=== PATIENT | male | born 1945 | race Caucasian/White ===

== ENCOUNTER 2022-02-14 11:16 | Inpatient (IN) | payer MEDICARE ==
[~2022-02-14] VITALS: Ht 175.3 cm; Wt 68.0 kg
--- NOTE | 2022-02-14 11:30 | NUR ---
C/O MID STERNAL CHEST "TIGHTNESS" NON RADIATING X 1 HR AGO. DENIES SOB, DIZZINESS, N/V, BURR, ARM/JAW PAIN AT THIS TIME. PLACED ON BED, AAOX4, BREATHING EVEN AND UNLABORED SATURATING AT 97%, IN PAIN 5/10 PS.
--- NOTE | 2022-02-14 11:36 | NUR ---
X-RAY TECH AT BEDSIDE
--- NOTE | 2022-02-14 11:50 | NUR ---
blood drawn and sent to lab
[2022-02-14 11:54] LABS: BASOPHILS % (AUTO) 0.4 % (0.0-2.0); EOSINOPHILS % (AUTO) 1.3 % (0.0-6.0); HEMATOCRIT 38 % (39-51); HEMOGLOBIN 12.7 g/dL (13.5-17.5); LYMPHOCYTES # (AUTO) 0.5 K/uL (0.8-4.8); LYMPHOCYTES % (AUTO) 7.3 % (20.0-44.0); MEAN CORPUSCULAR HGB CONC 33 g/dl (31.0-36.0); MEAN CORPUSCULAR VOLUME 89 fL (80-96); MONOCYTES # (AUTO) 0.5 K/uL (0.1-1.30); MONOCYTES % (AUTO) 7.4 % (2.0-12.0); NEUTROPHILS # (AUTO) 5.9 K/uL (1.8-8.9); NEUTROPHILS % (AUTO) 83.6 % (43.0-81.0); PLATELET COUNT (AUTO) 162 K/uL (150-450); RED BLOOD CELL COUNT(AUTO) 4.28 MIL/uL (4.5-6.0)
--- NOTE | 2022-02-14 11:55 | NUR ---
move sheet submitted.
--- NOTE | 2022-02-14 11:57 | NUR ---
SWAB FOR COVID19 SENT TO LAB
[2022-02-14 12:02] LABS: CALCIUM, SERUM 9.1 mg/dL (8.5-10.1); CARBON DIOXIDE 28 mmol/L (21-32); CHLORIDE 104 mmol/L (98-107); CREATININE 1.4 mg/dL (0.6-1.3); GLUCOSE 106 mg/dL (74-106); SODIUM SERUM 138 mmol/L (136-145); UREA NITROGEN, BLOOD 23 mg/dL (7-18)
[2022-02-14] MEDS ORDERED: CHOL500011 PO (12:33)
[2022-02-14] MEDS ORDERED: OLME40TA18 PO (12:33)
[2022-02-14] MEDS ORDERED: ROSU5TAB13 PO (12:33)
[2022-02-14] MEDS ORDERED: ASPI-1420 PO (12:33)
[2022-02-14] MEDS ORDERED: NEBI20TA2 PO (12:33)
[2022-02-14] MEDS ORDERED: HYDROCODONE/APAP 5/325MG TABLET PO PRN (13:00)
[2022-02-14] MEDS ORDERED: Z GUARD REMEDY 4 OZ OINT TP PRN (13:00)
[2022-02-14] MEDS ORDERED: NITROGLYCERIN 0.4 MG/TAB BOTTLE SL PRN (13:00)
[2022-02-14] MEDS ORDERED: ACETAMINOPHEN 325 MG TABLET PO PRN (13:00)
[2022-02-14] MEDS ORDERED: IV NS 0.9% 1,000 ML IV PRN (13:00)
[2022-02-14] MEDS ORDERED: MAGNESIUM HYDROXIDE 30 ML UDC PO PRN (13:00)
[2022-02-14] MEDS ORDERED: MAG HYDROX/AL HYDROX/SIMETH 30 ML UDC PO PRN (13:00)
[2022-02-14] MEDS ORDERED: ONDANSETRON HCL/PF 4 MG/2 ML VIAL IVP PRN (13:00)
[2022-02-14] MEDS ORDERED: MORPHINE SULFATE INJ 2 MG/ML DISP.SYRIN IV PRN (13:00)
--- NOTE | 2022-02-14 14:17 | NUR ---
REPORT GIVEN TO AMANDA RN ROOM 309-1 FOR KATERNIE
--- NOTE | 2022-02-14 15:00 | NUR ---
ADMISSION NOTE Received patient from ER via gurney. Patient is A/o x 4, able to make needs known. On room air, breathing evenly and unlabored. No SOB or s/s of distress noted. IV access on RAC #20, intact and patent. Patient oriented to room and how to use the call light. Skin assessment done, redness on sacrum and inner buttock noted. Patient states that he has history of skin cancer on that area. Photos taken and placed in chart, wound care consult requested. Lungs clear on auscultation. Bowel sounds present x 4. Safety precautions in place: bed in low, locked position; siderails up x 2; call light within reach. Will continue to monitor. Addendum: 02/14/22 at 1930 by AGLI DAWN RN ADD: VS as follows: BP 133/70, HR 54, RR 20, Temp 97.3, SPO2 98%
[2022-02-14 16:00] VITALS: BP 133/70
--- NOTE | 2022-02-14 19:41 | NUR ---
TOBACCO DRUMMER CLOSING NOTE Patient in bed, resting. A/O x 4, able to make needs known. Stable on room air. IV access on RAC #20 infusing Ns at 75 ml/hr. All needs attended to. Safety precautions maintained. Will endorse to shift leader nurse for KATERINE. Addendum: 02/14/22 at 1943 by GALI DAWN RN ADD: On tele monitoring showing SB with BBB, HR 49
--- NOTE | 2022-02-14 20:16 | NUR ---
AQUATICS DIRECTOR OPENING NOTE PATIENT AWAKE IN BED, ALERT/ORIENTED X 4, PT ABLE TO MAKE NEEDS KNOWN. PT STABLE ON RA, NO S/S OF DISTRESS OR SOB NOTED, BREATHING EVEN AND UNLABORED. PATIENT ON EXTERNAL PROFILE SAW OPERATOR READING SINUS JACKELIN, HR: 47. IV ACCESS ON RIGHT AC #20G INTACT AND INFUSING NS @ 75 ML/HR. SAFETY MEASURES IN PLACE: CALL LIGHT WITHIN REACH, SIDE RAILS UP X 2, BED LOCKED IN LOWEST POSITION, BED ALARM ON. WILL CONTINUE TO MONITOR PATIENT
[2022-02-14 20:30] VITALS: BP 151/77
[2022-02-14] MEDS ORDERED: TEMAZEPAM 15 MG CAPSULE PO PRN (22:00)
[2022-02-15 05:58] LABS: BASOPHILS % (AUTO) 0.3 % (0.0-2.0); EOSINOPHILS % (AUTO) 3.3 % (0.0-6.0); HEMATOCRIT 37 % (39-51); HEMOGLOBIN 12.2 g/dL (13.5-17.5); LYMPHOCYTES # (AUTO) 0.4 K/uL (0.8-4.8); MEAN CORPUSCULAR HGB CONC 33 g/dl (31.0-36.0); MEAN CORPUSCULAR VOLUME 89 fL (80-96); MONOCYTES # (AUTO) 0.5 K/uL (0.1-1.30); MONOCYTES % (AUTO) 8.6 % (2.0-12.0); NEUTROPHILS # (AUTO) 4.5 K/uL (1.8-8.9); NEUTROPHILS % (AUTO) 79.8 % (43.0-81.0); PLATELET COUNT (AUTO) 157 K/uL (150-450); RED BLOOD CELL COUNT(AUTO) 4.09 MIL/uL (4.5-6.0); WHITE BLOOD COUNT (AUTO) 5.6 K/uL (4.3-11.0)
[2022-02-15 06:48] LABS: CARBON DIOXIDE 30 mmol/L (21-32); CHLORIDE 108 mmol/L (98-107); CREATININE 1.4 mg/dL (0.6-1.3); GLUCOSE 93 mg/dL (74-106); PHOSPHORUS 2.8 mg/dL (2.5-4.9); POTASSIUM 4.4 mmol/L (3.5-5.1); SODIUM SERUM 143 mmol/L (136-145); UREA NITROGEN, BLOOD 19 mg/dL (7-18)
[2022-02-15 06:57] LABS: CHOLESTEROL 144 mg/dL (<200); HDL CHOLESTEROL 53 mg/dL (40-60); LDL 79 mg/dL (0-99); THYROID STIMULATING HORMONE 2.683 uIU/mL (0.358-3.74); TRIGLYCERIDES 49 mg/dL (30-150)
--- NOTE | 2022-02-15 07:03 | NUR ---
CLAIM ATTORNEY CLOSING NOTE PATIENT AWAKE IN BED, ALERT/ORIENTED X 4, PT ABLE TO MAKE NEEDS KNOWN. PT STABLE ON RA, NO S/S OF DISTRESS OR SOB NOTED, BREATHING EVEN AND UNLABORED. PATIENT ON EXTERNAL PRECISION DYER READING SINUS RHYTHM WITH BBB, HR: 73. IV ACCESS ON RIGHT AC #20G INTACT AND INFUSING NS @ 75 ML/HR. PATIENT NEEDS MET THROUGHOUT SHIFT. SAFETY MEASURES IN PLACE: CALL LIGHT WITHIN REACH, SIDE RAILS UP X 2, BED LOCKED IN LOWEST POSITION, BED ALARM ON. WILL ENDORSE TO DAYSHIFT NURSE FOR CONTINUITY OF CARE
[2022-02-15 08:00] VITALS: BP 151/64
--- NOTE | 2022-02-15 08:00 | NUR ---
WOOD FINISHER OPENING NOTE PATIENT AWAKE IN BED, ALERT/ORIENTED X 4, PT ABLE TO MAKE NEEDS KNOWN. PT STABLE ON RA, NO S/S OF DISTRESS OR SOB NOTED, BREATHING EVEN AND UNLABORED. NO CHEST PAIN.PATIENT ON EXTERNAL FORESTRY TECHNICIAN. IV ACCESS ON RIGHT AC #20G INTACT . SAFETY MEASURES IN PLACE: CALL LIGHT WITHIN REACH, SIDE RAILS UP X 2, BED LOCKED IN LOWEST POSITION, BED ALARM ON. WILL CONTINUE TO MONITOR PATIENT.
[2022-02-15] MEDS ORDERED: IV NS 0.9% 1,000 ML IV PRN (08:04)
[2022-02-15] MEDS: PANTOPRAZOLE 40 MG TABLET.DR PO SCH (08:30)
[2022-02-15] MEDS ORDERED: ASPIRIN EC 81 MG TABLET.DR PO SCH (09:00)
[2022-02-15] MEDS: METOPROLOL TARTRATE 50 MG TABLET PO SCH ×2 (09:22→20:23)
[2022-02-15] MEDS: ASPIRIN 81 MG TAB.CHEW PO SCH (09:23)
[2022-02-15] MEDS: LOSARTAN POTASSIUM 50 MG TABLET PO SCH (09:23)
--- NOTE | 2022-02-15 10:30 | NUR ---
BEEHIVE KILN SUPERVISOR NOTES PATIENT IS CALM AND AWAKE IN BED. NO COMPLAINS OF CHEST PAIN. UA SAMPLE HAS BEEN COLLECTED AND NOTIFIED THE LAB. CONSENT FOR THE 3D ANGIOGRAM SIGNED AND BEING PUT IN THE PATIENT'S CHART.
--- NOTE | 2022-02-15 10:32 | NUR ---
WOUND CARE CONSULT: PT PRESENTS WITH CHRONIC REDNESS/DRY, SCALY SKIN TO SACRUM, S/P SKIN CANCER AND RADIATION THERAPY. PT REQUESTS A MOISTURIZER FOR SACRAL DRY SKIN AREA. RECOMMENDATIONS MADE FOR SKIN PROTECTION. DISCUSSED WITH NURSING STAFF. PT IS INDEPENDENT WITH BED MOBILITY AND IS CONTINENT AT THIS TIME. MD IN AGREEMENT WITH PLAN OF CARE.
--- NOTE | 2022-02-15 11:22 | NUR ---
DIE FORGER NOTES CHECKED PATIENTS EKG ON THE MONITOR. HE IS IN SINUS BRADYCARDIA WITH BBB AT 40S. PATIENT IS ASYMPTOMATIC. CHECKED WITH PATIENT, PATIENT STATED HE FELT FINE. PATIENT IS READY FOR ANGIOGRAM.
[2022-02-15] MEDS ORDERED: IOHEXOL-350 100 ML VIAL IV ONE (11:46)
[2022-02-15] MEDS ORDERED: IV NS 0.9% 250 ML IV ONE (11:46)
[2022-02-15] MEDS ORDERED: METOPROLOL TARTRATE INJ 5 MG/5 ML AMPUL ONE (11:51)
[2022-02-15] MEDS ORDERED: NITROGLYCERIN 0.4 MG/TAB BOTTLE ONE (11:51)
[2022-02-15 12:00] VITALS: BP 124/68
[2022-02-15] MEDS ORDERED: METOPROLOL TARTRATE INJ 5 MG/5 ML AMPUL IVP PRN (12:00)
[2022-02-15] MEDS ORDERED: NITROGLYCERIN 0.4 MG/TAB BOTTLE SL ONE (12:00)
[2022-02-15 12:07] LABS: BILIRUBIN,URINE NEGATIVE (NEGATIVE); COLOR,URINE YELLOW (YELLOW); LEUKOCYTE ESTERASE ,URINE LARGE (NEGATIVE); NITRITE, URINE POSITIVE (NEGATIVE); PH,URINE 5.5 (5.0-8.0); PROTEIN,URINE NEGATIVE (NEGATIVE); UGLUCOSE NEGATIVE (NEGATIVE); UROBILINOGEN,URINE 0.2 EU/dL (0.2)
[2022-02-15 12:25] LABS: BACTERIA,URINE Few /HPF (None Seen); SQUAMOUS EPITHELIAL CELL,UR Few /HPF (None Seen); WBC,URINE 21-50 /HPF (0-3)
[2022-02-15] MEDS: MINERAL OIL/PETROL OINT 396 GM JAR TP SCH (13:34)
--- NOTE | 2022-02-15 14:00 | NUR ---
SPEECH CORRECTION CONSULTANT NOTE PATIENT TOLERATED CTA AND PATIENT WAS SEEN BY DR. MENDOZA WITH ORDER FOR LEFT HEART CATH FOR TOMORROW. SECURED CONSENT FROM MD AND ATTACHED TO CHART.
[2022-02-15] MEDS: CEFTRIAXONE 1 G in IV D5W 50 ML IV SCH (14:45)
[2022-02-15 16:00] VITALS: BP 153/64
[2022-02-15] MEDS: ATORVASTATIN 10 MG TABLET PO SCH (17:51)
--- NOTE | 2022-02-15 19:05 | NUR ---
MS RN CLOSING NOTES: PT IS IN BED sleeping. A/O X 4. NO SOB OR DISTRESS. DENIES OF HAVING CHEST DISCOMFORT OR PAIN. SAFETY PRECAUTION MAINTAINED: BED LOCKED AND IN LOWEST POSITION, SIDE RAILS UP X 2, BED ALARM ON. CALL LIGHT IN EASY REACH FOR HELP. PATIENT STARTED NPO EXCEPT FOR MEDICATIONS AFTER MIDNIGHT FOR TOMORROW'S PROCEDURE (SEE PROCEDURE NOTES). ENDORSE TO RN OF NEXT SHIFT FOR CONTINUING CARE.
--- NOTE | 2022-02-15 19:27 | NUR ---
INSURANCE INSPECTOR OPENING NOTES RECEIVED PATIENT RESTING IN BED COMFORTABLY; A/O4, BREATHING EVEN AND UNLABORED; NO SOB NOTED; TOLERATING ROOM AIR WELL; NO DISTRESS NOTED; PATIENT DENIES PAIN AT THIS TIME; PATIENT ABLE TO MAKE NEEDS KNOWN; PATIENT AMBULATORY WITH STEADY GAIT AND HAS BRP; TELE MONITOR READS SINUS JACKELIN WITH BBB; R AC #20 S/L NOTED; INTACT AND PATENT, FLUSHING WELL; NO S/S OF REDNESS OR INFILTRATION NOTED; PATIENT IS NPO EXCEPT MEDS D/T POSSIBLE LEFT HEART CATH INSERTION IN AM; CONSENTS SIGNED AND FILED IN CHART; SAFETY PRECAUTIONS IMPLEMENTED; BED LOCKED IN LOW POSITION; SIDE RAILSX2, CALL LIGHT WITHIN EASY REACH; WILL CONT PLAN OF CARE
[2022-02-15 20:00] VITALS: BP 142/56
[2022-02-15 21:19] VITALS: BP 142/56
[2022-02-16] VITALS (7 sets, daily range): BP systolic 98–122; BP diastolic 60–77
--- NOTE | 2022-02-16 06:33 | NUR ---
STUMMEL SELECTOR NOTES R AC #20G S/L IV SITE DISLODGED, IV REMOVED; IV TIP INTACT; NO S/S OF REDNESS OR INFILTRATION NOTED; PATIENT DENIES PAIN; NEW IV ACCESS SITE ESTABLISHED, L AC #20G S/L, INTACT AND PATENT, FLUSHING WELL;
--- NOTE | 2022-02-16 06:47 | NUR ---
COCONUT CANDY MAKER CLOSING NOTES RECEIVED PATIENT RESTING IN BED COMFORTABLY; A/O4, BREATHING EVEN AND UNLABORED; NO SOB NOTED; TOLERATING ROOM AIR WELL; NO DISTRESS NOTED; PATIENT DENIES PAIN AT THIS TIME; PATIENT ABLE TO MAKE NEEDS KNOWN; PATIENT AMBULATORY WITH STEADY GAIT AND HAS BRP; TELE MONITOR READS SINUS JACKELIN WITH BBB; L AC #20 S/L NOTED; INTACT AND PATENT, FLUSHING WELL; NO S/S OF REDNESS OR INFILTRATION NOTED; PATIENT IS NPO EXCEPT MEDS D/T POSSIBLE LEFT HEART CATH INSERTION 1100; CONSENTS AND CHECKLIST COMPLETED, SIGNED AND FILED IN CHART; ALL NEEDS RENDERED; SAFETY PRECAUTIONS IMPLEMENTED; BED LOCKED IN LOW POSITION; SIDE RAILSX2, CALL LIGHT WITHIN EASY REACH; WILL ENDORSE KATERINE TO ONCOMING SHIFT
[2022-02-16] MEDS: PANTOPRAZOLE 40 MG TABLET.DR PO SCH ×2 (07:30→08:39)
--- NOTE | 2022-02-16 07:35 | NUR ---
NET MVC DEVELOPER OPENING NOTES RECEIVED PATIENT LYING IN BED COMFORTABLY; A/OX4, ABLE TO MAKE NEEDS MET, ABLE TO TOLERATE ROOM AIR AT 96% WITH NO APPARENT DISTRESS NOTED, BREATHING EVEN AND UNLABORED. PATIENT DENIES PAIN AT THIS TIME, PATIENT AMBULATORY WITH STEADY GAIT AND HAS BRP; TELE MONITOR SHOWS SINUS JACKELIN WITH BBB AT 40S BPM. IV ACCESS ON LAC #20 SALINE LOCKED; INTACT AND PATENT, FLUSHING WELL. PATIENT HAS BEEN FOLLOWING NPO EXCEPT MEDS D/T POSSIBLE LEFT HEART CATH INSERTION AT 110. SAFETY PRECAUTIONS IN PLACE: BED LOCKED IN LOW POSITION; SIDE RAILSX2, CALL LIGHT AND TRAY TABLE WITHIN EASY REACH, WILL CONTINUE TO MONITOR DURING MY SHIFT.
[2022-02-16 08:12] LABS: BASOPHILS % (AUTO) 0.4 % (0.0-2.0); EOSINOPHILS % (AUTO) 3.3 % (0.0-6.0); HEMATOCRIT 37 % (39-51); HEMOGLOBIN 12.2 g/dL (13.5-17.5); LYMPHOCYTES # (AUTO) 0.4 K/uL (0.8-4.8); LYMPHOCYTES % (AUTO) 7.3 % (20.0-44.0); MEAN CORPUSCULAR HGB CONC 33 g/dl (31.0-36.0); MEAN CORPUSCULAR VOLUME 90 fL (80-96); MONOCYTES # (AUTO) 0.5 K/uL (0.1-1.30); MONOCYTES % (AUTO) 7.9 % (2.0-12.0); NEUTROPHILS % (AUTO) 81.1 % (43.0-81.0); PLATELET COUNT (AUTO) 150 K/uL (150-450); WHITE BLOOD COUNT (AUTO) 6.1 K/uL (4.3-11.0)
[2022-02-16 08:21] LABS: CALCIUM, SERUM 9.1 mg/dL (8.5-10.1); CARBON DIOXIDE 31 mmol/L (21-32); CHLORIDE 107 mmol/L (98-107); CREATININE 1.3 mg/dL (0.6-1.3); GLUCOSE 95 mg/dL (74-106); POTASSIUM 3.9 mmol/L (3.5-5.1); SODIUM SERUM 140 mmol/L (136-145); UREA NITROGEN, BLOOD 20 mg/dL (7-18)
[2022-02-16] MEDS: ASPIRIN 81 MG TAB.CHEW PO SCH (08:57)
[2022-02-16] MEDS: METOPROLOL TARTRATE 50 MG TABLET PO SCH ×2 (09:00→20:43)
[2022-02-16] MEDS: LOSARTAN POTASSIUM 50 MG TABLET PO SCH (09:01)
[2022-02-16] MEDS: MINERAL OIL/PETROL OINT 396 GM JAR TP SCH (09:04)
--- NOTE | 2022-02-16 10:45 | NUR ---
RN NOTES PATIENT WHEELED TO BRAND LEAD VIA WC.
[2022-02-16] MEDS ORDERED: LIDOCAINE HCL/MPF 1% 30 ML VIAL IJ ONE (10:52)
[2022-02-16] MEDS ORDERED: IV SET PRIMARY PUMP SET 1 EA INFUS.SET MC ONE (10:52)
[2022-02-16] MEDS ORDERED: IV NS 0.9% 1,000 ML ONE (10:52)
[2022-02-16] MEDS ORDERED: MIDAZOLAM HCL 2 MG/2ML VIAL ONE (10:53)
[2022-02-16] MEDS ORDERED: FENTANYL PF 100MCG/2ML AMPUL ONE (10:53)
[2022-02-16] MEDS ORDERED: NITROGLYCERIN IN 5 % DEXTROSE 250 ML IV ONE (10:53)
[2022-02-16] MEDS ORDERED: IODIXANOL 150 ML IV ONE (11:20)
--- NOTE | 2022-02-16 12:30 | NUR ---
RN NOTES PATIENT GOT BACK FROM [facility] AT 1225 WITH TR BAND ON RIGHT WRIST WITH 15 ML OF AIR. NO SIGNS AND SYMPTOMS OF ACTIVE BLEEDING NOTED ON SITE. WILL START TO WITHDRAW AIR AT 1409, 2 HOURS POST INSERTION OF TR BAND AT 1209.
[2022-02-16] MEDS: CEFTRIAXONE 1 G in IV D5W 50 ML IV SCH (13:45)
--- NOTE | 2022-02-16 14:15 | NUR ---
RN NOTES - TR BAND REMOVAL 1415 - 3 CC OF AIR REMOVED - OXYGEN SATURATION ON RIGHT HAND - 97% 1430 - 3 CC OF AIR REMOVED - OXYGEN SATURATION ON RIGHT HAND - 96% 1445 - 4 CC OF AIR REMOVED - OXYGEN SATURATION ON RIGHT HAND - 97% 1500 - 5 CC OF AIR REMOVED - OXYGEN SATURATION ON RIGHT HAND - 98% TOTAL OF 15 CC OR AIR REMOVED, REMOVED TR BAND WITHOUT ANY NOTED BLEEDING. APPLIED PRESSURE GAUZE AND SECURED WITH TAPE.
[2022-02-16] MEDS: ATORVASTATIN 10 MG TABLET PO SCH (17:04)
--- NOTE | 2022-02-16 19:00 | NUR ---
UTILITY DIVISION PROJECT MANAGER CLOSING NOTES RECEIVED PATIENT LYING IN BED; A/OX4, ABLE TO MAKE NEEDS MET, ABLE TO TOLERATE ROOM AIR AT 96% WITH NO APPARENT DISTRESS NOTED, BREATHING EVEN AND UNLABORED. S/P LEFT HEART CATHETERIZATION. PATIENT DENIES PAIN AT THIS TIME, PATIENT AMBULATORY WITH STEADY GAIT AND HAS BRP; TELE MONITOR SHOWS SINUS JACKELIN AT 54 BPM. IV ACCESS ON LAC #20 SALINE LOCKED; INTACT AND PATENT, FLUSHING WELL. ALL NEEDS MET, DUE MEDS GIVEN. SAFETY PRECAUTIONS IN PLACE: BED LOCKED IN LOW POSITION; SIDE RAILSX2, CALL LIGHT AND TRAY TABLE WITHIN EASY REACH, ENDORSED TO HOTEL CASINO FLOORPERSON NURSE.
--- NOTE | 2022-02-16 19:13 | NUR ---
WOOD LATHE OPERATOR OPENING NOTE RECEIVED PT IN AAOX 4, PT ABLE TO MAKE NEEDS KNOWN.ALESHA WELL ON RM AIR NO SIGN SOB/DISTRESS NOTED, BREATHING EVEN AND UNLABORED.NO COMPLAINED OF PAIN/DISCOMFORT AT THIS TIME, IV ACCESS ON LAC #20G INTACT AND PATENT,SAFETY MEASURES IN PLACE: CALL LIGHT WITHIN REACH, SIDE RAILS UP X 2, BED LOCKED IN LOWEST POSITION, BED ALARM ON. WILL CONTINUE TO MONITOR.
--- NOTE | 2022-02-16 20:45 | NUR ---
rn notes; metoprolol 50mg po not given d/t bp 98/59.
[2022-02-17] VITALS: BP 102/58
[2022-02-17 04:00] VITALS: BP 115/67
--- NOTE | 2022-02-17 06:13 | NUR ---
SOLID FIBER PASTER OPERATOR OPENING NOTE ; PT IN BED AAOX 4, PT ABLE TO MAKE NEEDS KNOWN.ALESHA WELL ON RM AIR NO SIGN SOB/DISTRESS NOTED, BREATHING EVEN AND UNLABORED.NO COMPLAINED OF PAIN/DISCOMFORT DURING SHIFT,DUE MEDS GIVEN ORDERED,ALL NEEDS ATTENDED, IV ACCESS ON LAC #20G INTACT AND PATENT,SAFETY MEASURES IN PLACE: CALL LIGHT WITHIN REACH, SIDE RAILS UP X 2, BED LOCKED IN LOWEST POSITION, BED ALARM ON. RAVI ENDORSED TO NEXT SHIFT.
[2022-02-17 06:16] LABS: BASOPHILS % (AUTO) 0.4 % (0.0-2.0); EOSINOPHILS % (AUTO) 3.3 % (0.0-6.0); HEMATOCRIT 40 % (39-51); HEMOGLOBIN 13.4 g/dL (13.5-17.5); LYMPHOCYTES # (AUTO) 0.4 K/uL (0.8-4.8); LYMPHOCYTES % (AUTO) 6.3 % (20.0-44.0); MEAN CORPUSCULAR HGB CONC 34 g/dl (31.0-36.0); MEAN CORPUSCULAR VOLUME 89 fL (80-96); MONOCYTES # (AUTO) 0.6 K/uL (0.1-1.30); MONOCYTES % (AUTO) 8.2 % (2.0-12.0); NEUTROPHILS # (AUTO) 5.8 K/uL (1.8-8.9); NEUTROPHILS % (AUTO) 81.8 % (43.0-81.0); PLATELET COUNT (AUTO) 163 K/uL (150-450); RED BLOOD CELL COUNT(AUTO) 4.51 MIL/uL (4.5-6.0); WHITE BLOOD COUNT (AUTO) 7.1 K/uL (4.3-11.0)
[2022-02-17 06:59] LABS: CALCIUM, SERUM 9.2 mg/dL (8.5-10.1); CARBON DIOXIDE 31 mmol/L (21-32); CHLORIDE 106 mmol/L (98-107); CREATININE 1.1 mg/dL (0.6-1.3); GLUCOSE 85 mg/dL (74-106); POTASSIUM 4.1 mmol/L (3.5-5.1); SODIUM SERUM 141 mmol/L (136-145); UREA NITROGEN, BLOOD 19 mg/dL (7-18)
--- NOTE | 2022-02-17 07:30 | NUR ---
AGRICULTURAL CONSULTANT OPENING NOTE RECEIVED PATIENT IN BED AWAKE. PATIENT IS A/OX 4, PT ABLE TO MAKE NEEDS KNOWN IN ENFGLISH LANGUAGE.ON RM AIR. NO SOB NOTED. NO DISTRESS NOTED, BREATHING EVEN AND UNLABORED.NO PAIN NOTED. IV ACCESS ON LAC #20G INTACT AND PATENT RUNNING NS AT 200 ML/HR. PATIENT IS AMBULATORY AND BRP. ALL SAFETY MEASURES IN PLACE: CALL LIGHT WITHIN REACH, SIDE RAILS UP X 2, BED LOCKED IN LOWEST POSITION, BED ALARM ON. WILL CONTINUE TO MONITOR.
[2022-02-17] MEDS: PANTOPRAZOLE 40 MG TABLET.DR PO SCH (07:41)
[2022-02-17 08:00] VITALS: BP 123/69
[2022-02-17 09:02] VITALS: BP 123/69
[2022-02-17] MEDS: ASPIRIN 81 MG TAB.CHEW PO SCH (09:02)
[2022-02-17] MEDS: LOSARTAN POTASSIUM 50 MG TABLET PO SCH (09:02)
[2022-02-17] MEDS: METOPROLOL TARTRATE 50 MG TABLET PO SCH (09:02)
[2022-02-17] MEDS: MINERAL OIL/PETROL OINT 396 GM JAR TP SCH (09:03)
[2022-02-17] MEDS ORDERED: CEPH500C2 PO (09:06)
--- NOTE | 2022-02-17 11:15 | NUR ---
RN NOTES DISCHARGE PATIENT IN STABLE VITAL SIGNS WITH STABLE CONDITION. NO PAIN NOTED. NO SOB NOTED. NO DISTRESS NOTED. ALL THE DISCHARGE INSTRUCTIONS GIVEN TO THE PATIENT. PATIENT VERBALIZED UNDERSTANDING. REMINDED HIM FOR FOLLOW UP APPOINTMENT WITH DR THORPE IN A WEEK IN HIS OFFICE. ALL THE BELONGINGS ACCOUNTED AND SIGNED FOR. THE MEDICATION FROM PHARMACY GIVEN TO THE PATIENT. WALKED WITH THE PATIENT TO THE LOBBY. PATIENT LEFT HOSPITAL IN STABLE CONDITION WITH STABLE VITAL SIGNS AT 1115. MD AND CHARGE NURSE AWARE OF THE DISCHARGE.
== END 2022-02-17 11:15 | disposition home or self-care (01) | DRG 286 ==
LOC: ER 11:21 → TELE 14:21
PROVIDERS: ADMIT Nurse Practitioner Acute Care; ATTEND Internal Medicine
PROC: 4A023N7 Measurement of Cardiac Sampling and Pressure, Left Heart, Percutaneous Approach (ICD-10-PCS; principal; 2022-02-16)
PROC: B211YZZ Fluoroscopy of Multiple Coronary Arteries using Other Contrast (ICD-10-PCS; 2022-02-16)
DX: I25.110 Atherosclerotic heart disease of native coronary artery with unstable angina pectoris (principal); N17.0 Acute kidney failure with tubular necrosis; N39.0 Urinary tract infection, site not specified; K21.9 Gastro-esophageal reflux disease without esophagitis; Z20.822 Contact with and (suspected) exposure to COVID-19; I10 Essential (primary) hypertension; Z79.82 Long term (current) use of aspirin; Z79.899 Other long term (current) drug therapy; E78.00 Pure hypercholesterolemia, unspecified; Z87.891 Personal history of nicotine dependence; Z92.3 Personal history of irradiation; Z85.828 Personal history of other malignant neoplasm of skin; D64.9 Anemia, unspecified; B96.89 Other specified bacterial agents as the cause of diseases classified elsewhere; Z90.5 Acquired absence of kidney
CPT/HCPCS: 36415; 71045-TC; 75574; 76770-TC; 80048-TC; 80061-TC; 81001; 83735-TC; 84100-TC; 84443-TC; 84484-TC; 85025-TC; 85610-TC; 85730-TC; 87081-TC; 87086-TC; 87186-TC; 93307-TC; 94799-TC; C9803; G0378; G0500; J0696; J1644; J2250; J3010; J3490; J7030; J7050; J7060; Q9967

== ENCOUNTER 2022-04-24 10:36 | Emergency (ER) | payer MEDICARE ==
[~2022-04-24] VITALS: Ht 172.7 cm; Wt 68.9 kg
[~2022-04-24 10:36] MED LIST: ASPI-1420 PO; CEPH500C2 PO; CHOL500011 PO; NEBI20TA2 PO; OLME40TA18 PO; ROSU5TAB13 PO
[2022-04-24 11:11] VITALS: BP 100/68
[2022-04-24] MEDS ORDERED: SULF1TAB48 PO (12:12)
--- NOTE | 2022-04-24 12:45 | NUR ---
Patient discharged to home in stable condition. Written and verbal after care instructions given. Patient verbalizes understanding of instruction.
== END 2022-04-24 13:13 | disposition home or self-care (01) ==
LOC: ER 10:41
DX: L03.011 Cellulitis of right finger (principal); I10 Essential (primary) hypertension; E78.5 Hyperlipidemia, unspecified; Z60.2 Problems related to living alone; Z79.899 Other long term (current) drug therapy
CPT/HCPCS: 99283; 10060; A6403

== ENCOUNTER 2024-05-29 14:47 | Emergency (ER) | payer MEDICARE ==
[~2024-05-29] VITALS: Ht 175.3 cm; Wt 68.0 kg
[~2024-05-29 14:47] MED LIST changes: +SULF1TAB48 PO
[2024-05-29 15:31] LABS: BASOPHILS % (AUTO) 0.4 % (0.0-2.0); EOSINOPHILS % (AUTO) 0.2 % (0.0-6.0); HEMATOCRIT 40 % (39-51); HEMOGLOBIN 13.1 g/dL (13.5-17.5); LYMPHOCYTES # (AUTO) 0.3 K/uL (0.8-4.8); MEAN CORPUSCULAR HEMOGLOBIN 27 PG (26.0-33.0); MEAN CORPUSCULAR HGB CONC 33 g/dl (31.0-36.0); MEAN CORPUSCULAR VOLUME 82 fL (80-96); MONOCYTES # (AUTO) 0.6 K/uL (0.1-1.30); MONOCYTES % (AUTO) 5.6 % (2.0-12.0); NEUTROPHILS # (AUTO) 8.9 K/uL (1.8-8.9); NEUTROPHILS % (AUTO) 90.8 % (43.0-81.0); PLATELET COUNT (AUTO) 326 K/uL (150-450); RED BLOOD CELL COUNT(AUTO) 4.91 MIL/uL (4.5-6.0); WHITE BLOOD COUNT (AUTO) 9.8 K/uL (4.3-11.0)
[2024-05-29] MEDS ORDERED: MECLIZINE HCL 25 MG TABLET ONE (15:34)
[2024-05-29 15:36] LABS: CALCIUM, SERUM 8.9 mg/dL (8.5-10.1); CARBON DIOXIDE 29 mmol/L (21-32); CHLORIDE 105 mmol/L (98-107); CREATININE 1.8 mg/dL (0.6-1.3); GLUCOSE 142 mg/dL (74-106); POTASSIUM 4.1 mmol/L (3.5-5.1); SODIUM SERUM 141 mmol/L (136-145); UREA NITROGEN, BLOOD 43 mg/dL (7-18)
[2024-05-29] MEDS: MECLIZINE HCL 25 MG TABLET PO ONE (15:36)
[2024-05-29 15:40] LABS: INR 1.08 (0.91-1.10); PARTIAL THROMBOPLASTIN TIME 23.8 SEC (24.3-34.3); PROTHROMBIN TIME 11.4 SECS (9.2-11.1)
[2024-05-29 15:49] LABS: ALANINE AMINOTRANSFERASE 20 U/L (12-78); ALBUMIN 3.2 g/dL (3.4-5.0); ALKALINE PHOSPHATASE 129 U/L (46-116); ASPARTATE AMINOTRANSFERASE 19 U/L (15-37); BILIRUBIN,DIRECT 0.1 mg/dL (0.0-0.2); BILIRUBIN,TOTAL 0.3 mg/dL (0.2-1.0); LIPASE 73 U/L (16-77); NT-PRO BNP 908 pg/mL (0-125); TOTAL PROTEIN, SERUM 6.7 g/dL (6.4-8.2)
[2024-05-29 17:35] VITALS: BP 118/76; TEMP 97.8; O2SAT 98
== END 2024-05-29 17:37 | disposition home or self-care (01) ==
LOC: ER 14:50
DX: R42 Dizziness and giddiness (principal); E78.5 Hyperlipidemia, unspecified; I10 Essential (primary) hypertension; Z79.82 Long term (current) use of aspirin; Z85.828 Personal history of other malignant neoplasm of skin; R53.1 Weakness; Z60.2 Problems related to living alone; Z20.822 Contact with and (suspected) exposure to COVID-19
CPT/HCPCS: 99285; 70450; 71045; 87426; 93005; 85025; 80048; 83690; 80076; 36415; 84484; 85730; 83880; 82962; J8597

== ENCOUNTER 2024-09-14 16:38 | Emergency (ER) | payer MEDICARE ==
[~2024-09-14] VITALS: Ht 177.8 cm; Wt 68.0 kg
[2024-09-14 17:20] LABS: BASOPHILS # (AUTO) 0.1 K/uL (0.0-0.2); BASOPHILS % (AUTO) 0.6 % (0.0-2.0); EOSINOPHILS # (AUTO) 0.2 K/uL (0.0-0.7); EOSINOPHILS % (AUTO) 2.3 % (0.0-6.0); HEMATOCRIT 36 % (39-51); HEMOGLOBIN 11.4 g/dL (13.5-17.5); LYMPHOCYTES # (AUTO) 0.4 K/uL (0.8-4.8); LYMPHOCYTES % (AUTO) 5.2 % (20.0-44.0); MEAN CORPUSCULAR HEMOGLOBIN 26 PG (26.0-33.0); MEAN CORPUSCULAR HGB CONC 32 g/dl (31.0-36.0); MEAN CORPUSCULAR VOLUME 82 fL (80-96); MONOCYTES # (AUTO) 0.8 K/uL (0.1-1.30); MONOCYTES % (AUTO) 9.1 % (2.0-12.0); NEUTROPHILS # (AUTO) 7.1 K/uL (1.8-8.9); NEUTROPHILS % (AUTO) 82.8 % (43.0-81.0); PLATELET COUNT (AUTO) 353 K/uL (150-450); RED BLOOD CELL COUNT(AUTO) 4.36 MIL/uL (4.5-6.0); RED CELL DISTRIBUTION WIDTH 15.9 % (11.5-15.0); WHITE BLOOD COUNT (AUTO) 8.6 K/uL (4.3-11.0)
[2024-09-14 17:28] LABS: CALCIUM, SERUM 8.9 mg/dL (8.5-10.1); CARBON DIOXIDE 28 mmol/L (21-32); CHLORIDE 105 mmol/L (98-107); CREATININE 1.4 mg/dL (0.6-1.3); GLUCOSE 96 mg/dL (74-106); POTASSIUM 4.1 mmol/L (3.5-5.1); SODIUM SERUM 138 mmol/L (136-145); UREA NITROGEN, BLOOD 41 mg/dL (7-18)
[2024-09-14 20:18] VITALS: BP 128/72; TEMP 98; O2SAT 100
== END 2024-09-14 20:19 | disposition home or self-care (01) ==
LOC: ER 16:45
DX: S12.690A Other displaced fracture of seventh cervical vertebra, initial encounter for closed fracture (principal); S01.01XA Laceration without foreign body of scalp, initial encounter; E78.5 Hyperlipidemia, unspecified; I10 Essential (primary) hypertension; Z79.82 Long term (current) use of aspirin; Z85.828 Personal history of other malignant neoplasm of skin; Z60.2 Problems related to living alone; W18.39XA Other fall on same level, initial encounter; Y93.89 Activity, other specified; Y92.000 Kitchen of unspecified non-institutional (private) residence as the place of occurrence of the external cause; Y99.8 Other external cause status
CPT/HCPCS: 36415; 70450-TC; 71045-TC; 72125-TC; 73630-TC; 80048-TC; 84484-TC; 85025-TC